=== PATIENT | male | born 1975 | race Caucasian/White ===

== ENCOUNTER 2016-12-18 16:39 | Inpatient (IN) | payer OTHER ==
[~2016-12-18] VITALS: Ht 185.4 cm; Wt 79.5 kg
[~2016-12-18 16:39] MED LIST: ALPRAZOLAM1 MG PO; ATIVAN0.5 MG; BUSPAR; COMBIVENT RESPIM4 GM IH; DEPAKOTE500 MG PO; FOLIC ACID1 MG PO; LIBRIUM25 MG PO; LOTRIMIN AF24 GM TP; PROZAC40 MG PO; SILVADENE20 GM TP; SPECTRAVITE PO; THIAMINE HCL100 MG PO; ULTRAM50 MG PO; UNABLEOBTAIN; VENTOLIN HFA18 GM IH; VITAMIN B-1100 MG PO
[2016-12-18 18:21] LABS: EOSINOPHIL (%) 0.1 % (0-5); HEMATOCRIT 26.9 % (38.0-50.0); IMMATURE GRANULOCYTE (%) 1.7 % (0.0-0.7); IMMATURE GRANULOCYTE COUNT 0.3 K/uL; INSTRUMENT ABS NEUTROPHIL CT 14.3 K/uL; LYMPHOCYTE COUNT 1.3 K/uL (1.0-2.8); MCHC 37.5 G/DL (30.0-36.0); MCV 87.9 FL (86-99); MEAN PLAT.VOLUME 13.5 uM^3 (9.0-12.4); MONOCYTE (%) 9.1 % (3-12); MONOCYTE COUNT 1.6 K/uL (0-0.8); NEUTROPHIL (%) 81.4 % (45-76); NEUTROPHIL COUNT 14.3 K/uL (1.8-6.4); NRBC (%) 0.1 /100 WBC (0-0); PLATELET COUNT 141 K/uL (156-360); RBC DIS.WIDTH-CV 12.7 % (11.8-14.6); RBC DIS.WIDTH-SD 39.9 % (39-53); RED BLOOD COUNT 3.06 M/uL (4.00-5.50); WHITE BLOOD COUNT 17.6 K/uL (4.1-10.2)
[2016-12-18 18:33] LABS: CHLORIDE 86 mEq/L (99-109); SODIUM 121 mEq/L (136-147)
[2016-12-18 18:35] LABS: GLUCOSE 96 mg/dL (70-99)
[2016-12-18 18:37] LABS: ANION GAP 16 MEQ/L (2-14); TOTAL BILIRUBIN 1.9 mg/dL (0.0-1.0)
[2016-12-18 18:39] LABS: ALKALINE PHOSPHATASE 197 IU/L (3-129); GFR ESTIMATE (CALCULATED) 39 mL/min/; INTER. NORMALIZED RATIO 1.3; PROTHROMBIN TIME 13.3 (9.2-11.2); PTT 31.6 (25-32)
[2016-12-18 18:40] LABS: UREA NITROGEN (BUN) 39 mg/dL (9-23)
[2016-12-18 18:41] LABS: DIRECT BILIRUBIN 1.4 mg/dL (0.0-0.3)
[2016-12-18 18:44] LABS: POTASSIUM 2.2 mEq/L (3.7-5.4)
[2016-12-18 18:56] LABS: LIPASE > 4220 U/L (1.0-51.0)
[2016-12-18 19:36] LABS: LACTATE DEHYDROGENASE 143 IU/L (20-246)
[2016-12-18] MEDS ORDERED: NASA MIST SALIN75 ML BOTH NARES (21:43)
[2016-12-18] MEDS ORDERED: VIMPAT50 MG PO (21:43)
[2016-12-18] MEDS ORDERED: SODIUM CHLORIDE1 G1 PO (21:44)
[2016-12-18] MEDS ORDERED: FOLIC ACID1 MG PO (21:45)
[2016-12-18] MEDS ORDERED: OXAYDO5 MG PO (21:46)
[2016-12-18] MEDS ORDERED: OXYCODONE HCL5 MG PO (21:47)
[2016-12-18] MEDS ORDERED: CLONIDINE HCL0.1 MG PO (21:47)
[2016-12-18] MEDS ORDERED: IBUPROFEN800 MG PO (21:48)
[2016-12-18] MEDS ORDERED: ALPRAZOLAM1 MG PO (21:48)
[2016-12-18] MEDS ORDERED: KEPPRA1000 MG PO (21:49)
[2016-12-18] MEDS ORDERED: PRIMIDONE50 MG PO (21:50)
[2016-12-18] MEDS ORDERED: DEMECLOCYCLINE300 MG PO ×2 (21:51)
[2016-12-18] MEDS ORDERED: DIPHENHIST25 M2 PO (21:52)
[2016-12-18 22:39] VITALS: BP 130/83
[2016-12-18 22:45] VITALS: BP 130/83
[2016-12-18 23:00] VITALS: BP 127/78
[2016-12-18 23:30] VITALS: BP 0/0; BP 115/72
[2016-12-19] VITALS (15 sets, daily range): BP systolic 110–142; BP diastolic 63–80
[2016-12-19 00:21] LABS: METH RESISTANT S AUREUS PCR NEGATIVE (NEGATIVE)
[2016-12-19 00:36] LABS: HEMATOCRIT 21.7 % (38.0-50.0); MCH 33.2 PG (29.0-34.0); MCHC 37.8 G/DL (30.0-36.0); MCV 87.9 FL (86-99); NRBC (%) 0.1 /100 WBC (0-0); PLAT.SUFFICIENCY DECREASED; PLATELET COUNT 116 K/uL (156-360); RBC DIS.WIDTH-CV 12.6 % (11.8-14.6); RBC DIS.WIDTH-SD 39.5 % (39-53); RED BLOOD COUNT 2.47 M/uL (4.00-5.50); WHITE BLOOD COUNT 17.5 K/uL (4.1-10.2)
[2016-12-19 00:46] LABS: PROBE CHECK PASS; SPECIMEN PROCESSING CONTROL PASS
[2016-12-19 01:45] LABS: SODIUM 126 mEq/L (136-147)
[2016-12-19 01:46] LABS: MAGNESIUM 1.4 mg/dL (1.3-2.7)
[2016-12-19 01:47] LABS: GLUCOSE 79 mg/dL (70-99)
[2016-12-19 01:49] LABS: ANION GAP 12 MEQ/L (2-14); TOTAL BILIRUBIN 1.6 mg/dL (0.0-1.0)
[2016-12-19 01:51] LABS: ALKALINE PHOSPHATASE 156 IU/L (3-129); GFR ESTIMATE (CALCULATED) 51 mL/min/
[2016-12-19 01:52] LABS: UREA NITROGEN (BUN) 35 mg/dL (9-23)
[2016-12-19 02:00] LABS: CHLORIDE 95 mEq/L (99-109); POTASSIUM 2.2 mEq/L (3.7-5.4)
[2016-12-19 02:14] LABS: ADD MIUA? YES; BILIRUBIN NEGATIVE; BLOOD SMALL; COLOR YELLOW ((YELLOW)); GLUCOSE (STRIP) NEGATIVE; KETONES NEGATIVE; LEUKOCYTES NEGATIVE; NITRITE NEGATIVE; PROTEIN (STRIP) NEGATIVE; SPECIFIC GRAVITY 1.006 (1.000-1.030); UROBILINOGEN 0.2 MG/DL (0.2-1.0)
[2016-12-19 02:20] LABS: BACTERIA NONE SEEN /HPF; EPITHELIAL CELLS NONE SEEN /HPF; MUCUS NONE SEEN /LPF; UCUL ADDED? NO; WHITE BLOOD CELLS 0-5 /HPF (0-5)
[2016-12-19 03:27] LABS: UR CREATININE CONCENTRATION 77.9 MG/DL
[2016-12-19 06:19] LABS: HEMATOCRIT 21.2 % (38.0-50.0); MCH 32.8 PG (29.0-34.0); MCHC 36.3 G/DL (30.0-36.0); MCV 90.2 FL (86-99); MEAN PLAT.VOLUME 13.4 uM^3 (9.0-12.4); PLATELET COUNT 106 K/uL (156-360); RBC DIS.WIDTH-CV 13.3 % (11.8-14.6); RBC DIS.WIDTH-SD 43.1 % (39-53); RED BLOOD COUNT 2.35 M/uL (4.00-5.50); WHITE BLOOD COUNT 15.9 K/uL (4.1-10.2)
[2016-12-19 07:05] LABS: ANION GAP 10 MEQ/L (2-14); CHLORIDE 95 MEQ/L (99-109); GFR ESTIMATE (CALCULATED) 51 mL/min/; GLUCOSE 72 mg/dL (70-99); LIPASE 3217 U/L (1.0-51.0); MAGNESIUM 2.4 mg/dl (1.3-2.7); SAMPLE HEMOLYSIS CHECK 0; SAMPLE ICTERIC CHECK 0; SAMPLE LIPEMIA CHECK 0; SODIUM 125 MEQ/L (136-147); TRIGLYCERIDES 107 MG/DL (Normal: <150); UREA NITROGEN (BUN) 33 mg/dL (9-23)
[2016-12-19 07:08] LABS: POTASSIUM 2.7 MEQ/L (3.7-5.4)
[2016-12-19 09:31] LABS: ANION GAP 11 MEQ/L (2-14); CHLORIDE 95 MEQ/L (99-109); GFR ESTIMATE (CALCULATED) 51 mL/min/; GLUCOSE 72 mg/dL (70-99); POTASSIUM 2.8 MEQ/L (3.7-5.4); SAMPLE HEMOLYSIS CHECK 0; SAMPLE ICTERIC CHECK 0; SAMPLE LIPEMIA CHECK 0; SODIUM 126 MEQ/L (136-147); UREA NITROGEN (BUN) 33 mg/dL (9-23)
[2016-12-19 10:57] LABS: HBSG INDEX 0.25; HPCA INDEX 0.09
[2016-12-19 10:58] LABS: ANTI-HEPATITIS A VIRUS (IGM) Nonreactive; HAV INDEX 0.14
[2016-12-19 10:59] LABS: ANTI-HEPATITIS B CORE (IGM) Nonreactive; HBC IgM INDEX 0.07
[2016-12-19 13:38] LABS: ANION GAP 13 MEQ/L (2-14); CHLORIDE 97 MEQ/L (99-109); GFR ESTIMATE (CALCULATED) 51 mL/min/; GLUCOSE 73 mg/dL (70-99); MAGNESIUM 2.1 mg/dl (1.3-2.7); POTASSIUM 2.7 MEQ/L (3.7-5.4); SAMPLE HEMOLYSIS CHECK 0; SAMPLE ICTERIC CHECK 0; SAMPLE LIPEMIA CHECK 0; SODIUM 127 MEQ/L (136-147); UREA NITROGEN (BUN) 32 mg/dL (9-23)
[2016-12-19 18:32] LABS: ANION GAP 11 MEQ/L (2-14); CHLORIDE 96 MEQ/L (99-109); GFR ESTIMATE (CALCULATED) 55 mL/min/; GLUCOSE 76 mg/dL (70-99); POTASSIUM 2.6 MEQ/L (3.7-5.4); SAMPLE HEMOLYSIS CHECK 0; SAMPLE ICTERIC CHECK 0; SAMPLE LIPEMIA CHECK 0; SODIUM 126 MEQ/L (136-147); UREA NITROGEN (BUN) 31 mg/dL (9-23)
[2016-12-20] VITALS (12 sets, daily range): BP systolic 107–143; BP diastolic 67–92
[2016-12-20 00:49] LABS: CHLORIDE 100 mEq/L (99-109); SODIUM 126 mEq/L (136-147)
[2016-12-20 00:50] LABS: MAGNESIUM 1.7 mg/dL (1.3-2.7); POTASSIUM 3.2 mEq/L (3.7-5.4)
[2016-12-20 00:51] LABS: GLUCOSE 71 mg/dL (70-99)
[2016-12-20 00:52] LABS: ANION GAP 9 MEQ/L (2-14)
[2016-12-20 00:54] LABS: GFR ESTIMATE (CALCULATED) > 59 mL/min/
[2016-12-20 00:55] LABS: UREA NITROGEN (BUN) 30 mg/dL (9-23)
[2016-12-20 06:08] LABS: HEMATOCRIT 22.3 % (38.0-50.0); MCH 33.2 PG (29.0-34.0); MCHC 36.3 G/DL (30.0-36.0); MCV 91.4 FL (86-99); MEAN PLAT.VOLUME 13.5 uM^3 (9.0-12.4); PLATELET COUNT 118 K/uL (156-360); RBC DIS.WIDTH-CV 13.8 % (11.8-14.6); RBC DIS.WIDTH-SD 45.7 % (39-53); RED BLOOD COUNT 2.44 M/uL (4.00-5.50); WHITE BLOOD COUNT 15.4 K/uL (4.1-10.2)
[2016-12-20 06:35] LABS: ALKALINE PHOSPHATASE 149 IU/L (3-129); ANION GAP 9 MEQ/L (2-14); CHLORIDE 100 MEQ/L (99-109); GFR ESTIMATE (CALCULATED) > 59 mL/min/; GLUCOSE 67 mg/dL (70-99); POTASSIUM 3.4 MEQ/L (3.7-5.4); SAMPLE HEMOLYSIS CHECK 0; SAMPLE ICTERIC CHECK 0; SAMPLE LIPEMIA CHECK 0; SODIUM 126 MEQ/L (136-147); TOTAL BILIRUBIN 1.5 MG/DL (0.0-1.0); UREA NITROGEN (BUN) 30 mg/dL (9-23)
[2016-12-20 06:59] LABS: ANION GAP 9 MEQ/L (2-14); CHLORIDE 100 MEQ/L (99-109); GFR ESTIMATE (CALCULATED) > 59 mL/min/; GLUCOSE 67 mg/dL (70-99); POTASSIUM 3.4 MEQ/L (3.7-5.4); SODIUM 126 MEQ/L (136-147); UREA NITROGEN (BUN) 30 mg/dL (9-23)
[2016-12-20 07:00] LABS: SAMPLE HEMOLYSIS CHECK 0; SAMPLE ICTERIC CHECK 0; SAMPLE LIPEMIA CHECK 0
[2016-12-20 13:27] LABS: ANION GAP 8 MEQ/L (2-14); CHLORIDE 99 MEQ/L (99-109); GFR ESTIMATE (CALCULATED) > 59 mL/min/; GLUCOSE 68 mg/dL (70-99); MAGNESIUM 1.8 mg/dl (1.3-2.7); POTASSIUM 3.3 MEQ/L (3.7-5.4); SAMPLE HEMOLYSIS CHECK 0; SAMPLE ICTERIC CHECK 0; SAMPLE LIPEMIA CHECK 0; SODIUM 125 MEQ/L (136-147); UREA NITROGEN (BUN) 30 mg/dL (9-23)
[2016-12-20 18:53] LABS: ANION GAP 8 MEQ/L (2-14); CHLORIDE 99 MEQ/L (99-109); GFR ESTIMATE (CALCULATED) > 59 mL/min/; GLUCOSE 66 mg/dL (70-99); MAGNESIUM 1.8 mg/dl (1.3-2.7); SAMPLE HEMOLYSIS CHECK 1; SAMPLE ICTERIC CHECK 0; SAMPLE LIPEMIA CHECK 0; SODIUM 123 MEQ/L (136-147); UREA NITROGEN (BUN) 29 mg/dL (9-23)
[2016-12-20 18:54] LABS: POTASSIUM 3.9 MEQ/L (3.7-5.4)
[2016-12-21] VITALS (18 sets, daily range): BP systolic 109–144; BP diastolic 54–89
[2016-12-21 01:32] LABS: CHLORIDE 104 mEq/L (99-109); POTASSIUM 3.4 mEq/L (3.7-5.4); SODIUM 128 mEq/L (136-147)
[2016-12-21 01:34] LABS: GLUCOSE 70 mg/dL (70-99)
[2016-12-21 01:35] LABS: ANION GAP 9 MEQ/L (2-14)
[2016-12-21 01:38] LABS: GFR ESTIMATE (CALCULATED) > 59 mL/min/; UREA NITROGEN (BUN) 27 mg/dL (9-23)
[2016-12-21 08:07] LABS: ALKALINE PHOSPHATASE 144 IU/L (3-129); ANION GAP 8 MEQ/L (2-14); CHLORIDE 105 MEQ/L (99-109); GFR ESTIMATE (CALCULATED) > 59 mL/min/; GLUCOSE 78 mg/dL (70-99); POTASSIUM 3.5 MEQ/L (3.7-5.4); SAMPLE HEMOLYSIS CHECK 0; SAMPLE ICTERIC CHECK 0; SAMPLE LIPEMIA CHECK 0; SODIUM 129 MEQ/L (136-147); TOTAL BILIRUBIN 1.5 MG/DL (0.0-1.0); UREA NITROGEN (BUN) 26 mg/dL (9-23)
[2016-12-21 08:22] LABS: HEMATOCRIT 19.2 % (38.0-50.0); MCH 32.7 PG (29.0-34.0); MCHC 35.4 G/DL (30.0-36.0); MCV 92.3 FL (86-99); RBC DIS.WIDTH-CV 14.2 % (11.8-14.6); RBC DIS.WIDTH-SD 46.5 % (39-53); RED BLOOD COUNT 2.08 M/uL (4.00-5.50)
[2016-12-21 08:23] LABS: WHITE BLOOD COUNT 20.1 K/uL (4.1-10.2)
[2016-12-21 08:36] LABS: MEAN PLAT.VOLUME 12.9 uM^3 (9.0-12.4); PLATELET COUNT 125 K/uL (156-360)
[2016-12-21 08:46] LABS: INTER. NORMALIZED RATIO > 20.0; PROTHROMBIN TIME > 185.0 (9.2-11.2)
[2016-12-21 08:50] LABS: MAGNESIUM 1.6 mg/dl (1.3-2.7)
[2016-12-21 08:58] LABS: PLAT.SUFFICIENCY DECREASED
[2016-12-21 12:26] LABS: HEMATOCRIT 18.9 % (38.0-50.0); MCH 33.5 PG (29.0-34.0); MCV 93.1 FL (86-99); MEAN PLAT.VOLUME 13.3 uM^3 (9.0-12.4); PLATELET COUNT 128 K/uL (156-360); RBC DIS.WIDTH-CV 14.2 % (11.8-14.6); RBC DIS.WIDTH-SD 46.7 % (39-53); RED BLOOD COUNT 2.03 M/uL (4.00-5.50); WHITE BLOOD COUNT 20.5 K/uL (4.1-10.2)
[2016-12-21 12:39] LABS: ANION GAP 9 MEQ/L (2-14); CHLORIDE 103 MEQ/L (99-109); MAGNESIUM 1.6 mg/dl (1.3-2.7); POTASSIUM 3.9 MEQ/L (3.7-5.4); SAMPLE HEMOLYSIS CHECK 0; SAMPLE ICTERIC CHECK 0; SAMPLE LIPEMIA CHECK 0; SODIUM 129 MEQ/L (136-147)
[2016-12-21 14:05] LABS: ALKALINE PHOSPHATASE 158 IU/L (3-129); DIRECT BILIRUBIN 0.9 mg/dL (0.0-0.3); GAMMA-GT 442 IU/L (4-73); GFR ESTIMATE (CALCULATED) > 59 mL/min/; GLUCOSE 74 mg/dL (70-99); LIPASE 2208 U/L (1.0-51.0); TOTAL BILIRUBIN 1.4 MG/DL (0.0-1.0); UREA NITROGEN (BUN) 24 mg/dL (9-23)
[2016-12-21 18:39] LABS: ANION GAP 9 MEQ/L (2-14); CHLORIDE 101 MEQ/L (99-109); GFR ESTIMATE (CALCULATED) > 59 mL/min/; GLUCOSE 86 mg/dL (70-99); MAGNESIUM 1.8 mg/dl (1.3-2.7); POTASSIUM 3.9 MEQ/L (3.7-5.4); SAMPLE HEMOLYSIS CHECK 0; SAMPLE ICTERIC CHECK 0; SAMPLE LIPEMIA CHECK 0; SODIUM 126 MEQ/L (136-147); UREA NITROGEN (BUN) 23 mg/dL (9-23)
[2016-12-21 21:16] LABS: MCV 91.5 FL (86-99)
[2016-12-22] VITALS (22 sets, daily range): BP systolic 100–137; BP diastolic 66–86
[2016-12-22 00:48] LABS: CHLORIDE 104 mEq/L (99-109); POTASSIUM 3.4 mEq/L (3.7-5.4); SODIUM 130 mEq/L (136-147)
[2016-12-22 00:50] LABS: GLUCOSE 88 mg/dL (70-99)
[2016-12-22 00:52] LABS: ANION GAP 9 MEQ/L (2-14)
[2016-12-22 00:54] LABS: GFR ESTIMATE (CALCULATED) > 59 mL/min/
[2016-12-22 00:55] LABS: UREA NITROGEN (BUN) 22 mg/dL (9-23)
[2016-12-22 05:53] LABS: BASOPHIL COUNT 0.1 K/uL (0-0.1); EOSINOPHIL (%) 1.4 % (0-5); EOSINOPHIL COUNT 0.3 K/uL (0-0.3); HEMATOCRIT 24.5 % (38.0-50.0); IMMATURE GRANULOCYTE (%) 2.2 % (0.0-0.7); IMMATURE GRANULOCYTE COUNT 0.4 K/uL; INSTRUMENT ABS NEUTROPHIL CT 13.5 K/uL; LYMPHOCYTE COUNT 2.4 K/uL (1.0-2.8); MCH 32.5 PG (29.0-34.0); MCHC 36.3 G/DL (30.0-36.0); MCV 89.4 FL (86-99); MEAN PLAT.VOLUME 13.1 uM^3 (9.0-12.4); MONOCYTE (%) 14.2 % (3-12); MONOCYTE COUNT 2.8 K/uL (0-0.8); NEUTROPHIL (%) 69.5 % (45-76); NEUTROPHIL COUNT 13.5 K/uL (1.8-6.4); PLATELET COUNT 112 K/uL (156-360); RBC DIS.WIDTH-CV 14.2 % (11.8-14.6); RBC DIS.WIDTH-SD 45.5 % (39-53); WHITE BLOOD COUNT 19.5 K/uL (4.1-10.2)
[2016-12-22 06:33] LABS: RED BLOOD COUNT 2.74 M/uL (4.00-5.50)
[2016-12-22 07:03] LABS: PTT 37.9 (25-32)
[2016-12-22 10:26] LABS: ALKALINE PHOSPHATASE 150 IU/L (3-129); ANION GAP 9 MEQ/L (2-14); CHLORIDE 101 MEQ/L (99-109); DIRECT BILIRUBIN 1.2 mg/dL (0.0-0.3); GFR ESTIMATE (CALCULATED) > 59 mL/min/; GLUCOSE 82 mg/dL (70-99); IRON 87 MCG/DL (35-150); LIPASE 1374 U/L (1.0-51.0); POTASSIUM 3.6 MEQ/L (3.7-5.4); SAMPLE HEMOLYSIS CHECK 0; SAMPLE ICTERIC CHECK 0; SAMPLE LIPEMIA CHECK 0; SODIUM 129 MEQ/L (136-147); UREA NITROGEN (BUN) 22 mg/dL (9-23)
[2016-12-22 10:27] LABS: MAGNESIUM 1.5 mg/dl (1.3-2.7)
[2016-12-22 10:28] LABS: TOTAL BILIRUBIN 2.1 MG/DL (0.0-1.0)
[2016-12-22 13:45] LABS: ANION GAP 9 MEQ/L (2-14); CHLORIDE 100 MEQ/L (99-109); GFR ESTIMATE (CALCULATED) > 59 mL/min/; GLUCOSE 76 mg/dL (70-99); POTASSIUM 3.5 MEQ/L (3.7-5.4); SAMPLE HEMOLYSIS CHECK 0; SAMPLE ICTERIC CHECK 0; SAMPLE LIPEMIA CHECK 0; SODIUM 129 MEQ/L (136-147); UREA NITROGEN (BUN) 20 mg/dL (9-23)
[2016-12-22 16:29] LABS: PTT 37.8 (25-32)
[2016-12-22 17:01] LABS: INTER. NORMALIZED RATIO > 20.0
[2016-12-22 17:02] LABS: PROTHROMBIN TIME > 185.0 (9.2-11.2)
[2016-12-22 18:38] LABS: FIBRINOGEN 148 MG/DL (160-450); PTT 36.6 (25-32)
[2016-12-22 18:43] LABS: ANION GAP 9 MEQ/L (2-14); CHLORIDE 100 MEQ/L (99-109); GFR ESTIMATE (CALCULATED) > 59 mL/min/; GLUCOSE 76 mg/dL (70-99); POTASSIUM 3.3 MEQ/L (3.7-5.4); SAMPLE HEMOLYSIS CHECK 0; SAMPLE ICTERIC CHECK 0; SAMPLE LIPEMIA CHECK 0; SODIUM 128 MEQ/L (136-147); UREA NITROGEN (BUN) 19 mg/dL (9-23)
[2016-12-22 22:08] LABS: PTT 33.4 (25-32)
[2016-12-22 22:10] LABS: INTER. NORMALIZED RATIO 1.3; PROTHROMBIN TIME 13.3 (9.2-11.2)
[2016-12-23] VITALS: BP 113/60
[2016-12-23 02:00] VITALS: BP 114/64
[2016-12-23 04:00] VITALS: BP 90/51
[2016-12-23 05:35] LABS: BASOPHIL COUNT 0.1 K/uL (0-0.1); EOSINOPHIL (%) 1.7 % (0-5); EOSINOPHIL COUNT 0.3 K/uL (0-0.3); HEMATOCRIT 22.4 % (38.0-50.0); IMMATURE GRANULOCYTE (%) 1.3 % (0.0-0.7); IMMATURE GRANULOCYTE COUNT 0.2 K/uL; INSTRUMENT ABS NEUTROPHIL CT 11.9 K/uL; LYMPHOCYTE COUNT 1.7 K/uL (1.0-2.8); MCH 32.5 PG (29.0-34.0); MCHC 36.2 G/DL (30.0-36.0); MEAN PLAT.VOLUME 12.6 uM^3 (9.0-12.4); MONOCYTE (%) 14.8 % (3-12); MONOCYTE COUNT 2.5 K/uL (0-0.8); NEUTROPHIL (%) 71.3 % (45-76); NEUTROPHIL COUNT 11.9 K/uL (1.8-6.4); PLATELET COUNT 96 K/uL (156-360); RBC DIS.WIDTH-CV 14.4 % (11.8-14.6); RBC DIS.WIDTH-SD 46.7 % (39-53); RED BLOOD COUNT 2.49 M/uL (4.00-5.50); WHITE BLOOD COUNT 16.6 K/uL (4.1-10.2)
[2016-12-23 05:44] LABS: INTER. NORMALIZED RATIO 1.3; PROTHROMBIN TIME 13.4 (9.2-11.2); PTT 34.2 (25-32)
[2016-12-23 06:16] LABS: ALKALINE PHOSPHATASE 131 IU/L (3-129); ANION GAP 7 MEQ/L (2-14); CHLORIDE 103 MEQ/L (99-109); GFR ESTIMATE (CALCULATED) > 59 mL/min/; GLUCOSE 88 mg/dL (70-99); POTASSIUM 3.8 MEQ/L (3.7-5.4); SAMPLE HEMOLYSIS CHECK 0; SAMPLE ICTERIC CHECK 0; SAMPLE LIPEMIA CHECK 0; SODIUM 132 MEQ/L (136-147); UREA NITROGEN (BUN) 17 mg/dL (9-23)
[2016-12-23 06:18] LABS: TOTAL BILIRUBIN 1.5 MG/DL (0.0-1.0)
[2016-12-23 07:00] VITALS: BP 112/69
[2016-12-23 08:00] VITALS: BP 121/65
[2016-12-23 12:00] VITALS: BP 121/65
[2016-12-23 18:29] LABS: ANION GAP 9 MEQ/L (2-14); CHLORIDE 103 MEQ/L (99-109); GFR ESTIMATE (CALCULATED) > 59 mL/min/; GLUCOSE 92 mg/dL (70-99); POTASSIUM 3.9 MEQ/L (3.7-5.4); SAMPLE HEMOLYSIS CHECK 0; SAMPLE ICTERIC CHECK 0; SAMPLE LIPEMIA CHECK 0; SODIUM 133 MEQ/L (136-147); UREA NITROGEN (BUN) 15 mg/dL (9-23)
[2016-12-23 18:32] LABS: ANION GAP 10 MEQ/L (2-14); CHLORIDE 100 MEQ/L (99-109); GFR ESTIMATE (CALCULATED) > 59 mL/min/; GLUCOSE 94 mg/dL (70-99); POTASSIUM 3.6 MEQ/L (3.7-5.4); SAMPLE HEMOLYSIS CHECK 0; SAMPLE ICTERIC CHECK 0; SAMPLE LIPEMIA CHECK 0; SODIUM 130 MEQ/L (136-147); UREA NITROGEN (BUN) 14 mg/dL (9-23)
[2016-12-24 00:04] VITALS: BP 117/69
[2016-12-24 00:42] LABS: CHLORIDE 103 mEq/L (99-109); POTASSIUM 3.6 mEq/L (3.7-5.4); SODIUM 130 mEq/L (136-147)
[2016-12-24 00:44] LABS: GLUCOSE 89 mg/dL (70-99)
[2016-12-24 00:45] LABS: ANION GAP 9 MEQ/L (2-14)
[2016-12-24 00:48] LABS: GFR ESTIMATE (CALCULATED) > 59 mL/min/
[2016-12-24 00:49] LABS: UREA NITROGEN (BUN) 13 mg/dL (9-23)
[2016-12-24 06:01] LABS: HEMATOCRIT 21.7 % (38.0-50.0); MCH 32.1 PG (29.0-34.0); MCV 91.6 FL (86-99); MEAN PLAT.VOLUME 13.1 uM^3 (9.0-12.4); PLATELET COUNT 98 K/uL (156-360); RBC DIS.WIDTH-CV 14.8 % (11.8-14.6); RBC DIS.WIDTH-SD 48.4 % (39-53); RED BLOOD COUNT 2.37 M/uL (4.00-5.50); WHITE BLOOD COUNT 15.4 K/uL (4.1-10.2)
[2016-12-24 07:58] VITALS: BP 129/75
[2016-12-24 08:24] LABS: ALKALINE PHOSPHATASE 129 IU/L (3-129); ANION GAP 9 MEQ/L (2-14); CHLORIDE 102 MEQ/L (99-109); GFR ESTIMATE (CALCULATED) > 59 mL/min/; GLUCOSE 81 mg/dL (70-99); POTASSIUM 3.5 MEQ/L (3.7-5.4); SAMPLE HEMOLYSIS CHECK 0; SAMPLE ICTERIC CHECK 0; SAMPLE LIPEMIA CHECK 0; SODIUM 132 MEQ/L (136-147); TOTAL BILIRUBIN 1.4 MG/DL (0.0-1.0); UREA NITROGEN (BUN) 12 mg/dL (9-23)
[2016-12-24 16:24] LABS: ANION GAP 8 MEQ/L (2-14); CHLORIDE 99 MEQ/L (99-109); GFR ESTIMATE (CALCULATED) > 59 mL/min/; GLUCOSE 80 mg/dL (70-99); POTASSIUM 4.2 MEQ/L (3.7-5.4); SAMPLE HEMOLYSIS CHECK 0; SAMPLE ICTERIC CHECK 0; SAMPLE LIPEMIA CHECK 0; SODIUM 131 MEQ/L (136-147); UREA NITROGEN (BUN) 10 mg/dL (9-23)
[2016-12-24 16:42] VITALS: BP 126/70
[2016-12-24 19:14] LABS: ANION GAP 8 MEQ/L (2-14); CHLORIDE 99 MEQ/L (99-109); GFR ESTIMATE (CALCULATED) > 59 mL/min/; GLUCOSE 97 mg/dL (70-99); POTASSIUM 4.2 MEQ/L (3.7-5.4); SAMPLE HEMOLYSIS CHECK 0; SAMPLE ICTERIC CHECK 0; SAMPLE LIPEMIA CHECK 0; SODIUM 131 MEQ/L (136-147); UREA NITROGEN (BUN) 9 mg/dL (9-23)
[2016-12-24 20:44] VITALS: BP 116/61
[2016-12-24 23:16] LABS: HEMATOCRIT 23.6 % (38.0-50.0); MCH 32.4 PG (29.0-34.0); MCHC 35.2 G/DL (30.0-36.0); MCV 92.2 FL (86-99); MEAN PLAT.VOLUME 13.1 uM^3 (9.0-12.4); RBC DIS.WIDTH-CV 14.6 % (11.8-14.6); RBC DIS.WIDTH-SD 49.1 % (39-53); RED BLOOD COUNT 2.56 M/uL (4.00-5.50)
[2016-12-24 23:17] LABS: PLATELET COUNT 128 K/uL (156-360)
[2016-12-24 23:24] LABS: CHLORIDE 99 mEq/L (99-109); POTASSIUM 4.2 mEq/L (3.7-5.4); SODIUM 131 mEq/L (136-147)
[2016-12-24 23:26] LABS: GLUCOSE 87 mg/dL (70-99)
[2016-12-24 23:28] LABS: ANION GAP 11 MEQ/L (2-14); TOTAL BILIRUBIN 1.4 mg/dL (0.0-1.0)
[2016-12-24 23:30] LABS: ALKALINE PHOSPHATASE 135 IU/L (3-129); GFR ESTIMATE (CALCULATED) > 59 mL/min/
[2016-12-24 23:31] LABS: UREA NITROGEN (BUN) 9 mg/dL (9-23)
[2016-12-24 23:33] LABS: LIPASE 997 U/L (1.0-51.0)
[2016-12-25] VITALS: BP 123/65
[2016-12-25 01:05] LABS: ADD MIUA? YES; BILIRUBIN NEGATIVE; BLOOD SMALL; COLOR YELLOW ((YELLOW)); GLUCOSE (STRIP) NEGATIVE; KETONES NEGATIVE; LEUKOCYTES NEGATIVE; NITRITE NEGATIVE; PROTEIN (STRIP) NEGATIVE; SPECIFIC GRAVITY 1.004 (1.000-1.030); UROBILINOGEN 0.2 MG/DL (0.2-1.0)
[2016-12-25 01:08] LABS: BACTERIA NONE SEEN /HPF; EPITHELIAL CELLS NONE SEEN /HPF; MUCUS TRACE /LPF; RED BLOOD CELLS 0-5 /HPF (0-5); UCUL ADDED? NO; WHITE BLOOD CELLS 0-5 /HPF (0-5)
[2016-12-25 01:39] LABS: C DIFF TOXIN NEGATIVE (NEGATIVE); PROBE CHECK PASS; SPECIMEN PROCESSING CONTROL PASS
[2016-12-25 04:05] LABS: HEMATOCRIT 20.8 % (38.0-50.0); MCH 32.8 PG (29.0-34.0); MCHC 36.1 G/DL (30.0-36.0); MCV 90.8 FL (86-99); RBC DIS.WIDTH-CV 14.6 % (11.8-14.6); RBC DIS.WIDTH-SD 47.8 % (39-53); RED BLOOD COUNT 2.29 M/uL (4.00-5.50)
[2016-12-25 04:16] LABS: CHLORIDE 101 mEq/L (99-109); SODIUM 130 mEq/L (136-147)
[2016-12-25 04:18] LABS: CHLORIDE 100 mEq/L (99-109); GLUCOSE 79 mg/dL (70-99); POTASSIUM 3.9 mEq/L (3.7-5.4); SODIUM 130 mEq/L (136-147)
[2016-12-25 04:20] LABS: ANION GAP 9 MEQ/L (2-14)
[2016-12-25 04:21] LABS: GLUCOSE 79 mg/dL (70-99)
[2016-12-25 04:22] LABS: ANION GAP 9 MEQ/L (2-14); GFR ESTIMATE (CALCULATED) > 59 mL/min/
[2016-12-25 04:23] LABS: TOTAL BILIRUBIN 1.4 mg/dL (0.0-1.0); UREA NITROGEN (BUN) 8 mg/dL (9-23)
[2016-12-25 04:24] LABS: ALKALINE PHOSPHATASE 118 IU/L (3-129)
[2016-12-25 04:25] LABS: GFR ESTIMATE (CALCULATED) > 59 mL/min/
[2016-12-25 04:26] LABS: UREA NITROGEN (BUN) 9 mg/dL (9-23)
[2016-12-25 04:38] LABS: MAGNESIUM 0.6 mg/dL (1.3-2.7)
[2016-12-25 05:06] LABS: MEAN PLAT.VOLUME 12.2 uM^3 (9.0-12.4); PLAT.SUFFICIENCY ADEQUATE; PLATELET COUNT 123 K/uL (156-360)
[2016-12-25 08:30] VITALS: BP 106/61
[2016-12-25 13:13] LABS: ANION GAP 8 MEQ/L (2-14); CHLORIDE 98 MEQ/L (99-109); GFR ESTIMATE (CALCULATED) > 59 mL/min/; GLUCOSE 85 mg/dL (70-99); POTASSIUM 4.3 MEQ/L (3.7-5.4); SAMPLE HEMOLYSIS CHECK 0; SAMPLE ICTERIC CHECK 0; SAMPLE LIPEMIA CHECK 0; SODIUM 130 MEQ/L (136-147); UREA NITROGEN (BUN) 8 mg/dL (9-23)
[2016-12-25 14:02] LABS: FERRITIN 973 NG/ML (22-322); LIPASE 592 U/L (1.0-51.0)
[2016-12-25 16:57] VITALS: BP 118/61
[2016-12-25 19:42] LABS: ANION GAP 10 MEQ/L (2-14); CHLORIDE 97 MEQ/L (99-109); GFR ESTIMATE (CALCULATED) > 59 mL/min/; GLUCOSE 121 mg/dL (70-99); POTASSIUM 3.3 MEQ/L (3.7-5.4); SAMPLE HEMOLYSIS CHECK 0; SAMPLE ICTERIC CHECK 0; SAMPLE LIPEMIA CHECK 0; SODIUM 129 MEQ/L (136-147); UREA NITROGEN (BUN) 7 mg/dL (9-23)
[2016-12-26 00:09] VITALS: BP 115/58
[2016-12-26 00:16] LABS: INTERNAL CONTROL VALID? YES
[2016-12-26 00:45] LABS: CHLORIDE 100 mEq/L (99-109); POTASSIUM 3.7 mEq/L (3.7-5.4); SODIUM 129 mEq/L (136-147)
[2016-12-26 00:47] LABS: GLUCOSE 127 mg/dL (70-99)
[2016-12-26 00:48] LABS: ANION GAP 8 MEQ/L (2-14)
[2016-12-26 00:51] LABS: GFR ESTIMATE (CALCULATED) > 59 mL/min/
[2016-12-26 00:52] LABS: UREA NITROGEN (BUN) 7 mg/dL (9-23)
[2016-12-26 05:48] LABS: HEMATOCRIT 21.1 % (38.0-50.0); MCH 32.4 PG (29.0-34.0); MCHC 34.6 G/DL (30.0-36.0); MCV 93.8 FL (86-99); MEAN PLAT.VOLUME 12.7 uM^3 (9.0-12.4); PLATELET COUNT 125 K/uL (156-360); RBC DIS.WIDTH-CV 14.6 % (11.8-14.6); RBC DIS.WIDTH-SD 49.6 % (39-53); RED BLOOD COUNT 2.25 M/uL (4.00-5.50)
[2016-12-26 06:41] LABS: ALKALINE PHOSPHATASE 117 IU/L (3-129); ANION GAP 11 MEQ/L (2-14); CHLORIDE 99 MEQ/L (99-109); GFR ESTIMATE (CALCULATED) > 59 mL/min/; GLUCOSE 110 mg/dL (70-99); LIPASE 449 U/L (1.0-51.0); POTASSIUM 3.8 MEQ/L (3.7-5.4); SAMPLE HEMOLYSIS CHECK 0; SAMPLE ICTERIC CHECK 0; SAMPLE LIPEMIA CHECK 0; SODIUM 131 MEQ/L (136-147); UREA NITROGEN (BUN) 6 mg/dL (9-23)
[2016-12-26 06:51] LABS: DIRECT BILIRUBIN 0.7 mg/dL (0.0-0.3); TOTAL BILIRUBIN 1.1 MG/DL (0.0-1.0)
[2016-12-26 08:20] VITALS: BP 131/57
[2016-12-26 11:03] LABS: MAGNESIUM 0.9 mg/dl (1.3-2.7)
[2016-12-26 12:20] LABS: ANION GAP 9 MEQ/L (2-14); CHLORIDE 97 MEQ/L (99-109); GFR ESTIMATE (CALCULATED) > 59 mL/min/; SAMPLE HEMOLYSIS CHECK 0; SAMPLE ICTERIC CHECK 0; SAMPLE LIPEMIA CHECK 0; SODIUM 129 MEQ/L (136-147); UREA NITROGEN (BUN) 5 mg/dL (9-23)
[2016-12-26 12:21] LABS: GLUCOSE 81 mg/dL (70-99)
[2016-12-26 14:01] LABS: PROTHROMBIN TIME ND (9.2-11.2)
[2016-12-26 14:06] LABS: BASELINE PT ND SEC (9.9-11.1)
[2016-12-26 16:30] VITALS: BP 110/59
[2016-12-26 18:46] LABS: ANION GAP 13 MEQ/L (2-14); CHLORIDE 97 MEQ/L (99-109); GFR ESTIMATE (CALCULATED) > 59 mL/min/; GLUCOSE 73 mg/dL (70-99); POTASSIUM 4.2 MEQ/L (3.7-5.4); SAMPLE HEMOLYSIS CHECK 0; SAMPLE ICTERIC CHECK 0; SAMPLE LIPEMIA CHECK 0; SODIUM 130 MEQ/L (136-147); UREA NITROGEN (BUN) 5 mg/dL (9-23)
[2016-12-26 20:15] VITALS: BP 111/56
[2016-12-27] VITALS: BP 98/55
[2016-12-27 00:37] LABS: CHLORIDE 101 mEq/L (99-109); POTASSIUM 3.7 mEq/L (3.7-5.4); SODIUM 130 mEq/L (136-147)
[2016-12-27 00:40] LABS: ANION GAP 10 MEQ/L (2-14)
[2016-12-27 00:42] LABS: GFR ESTIMATE (CALCULATED) > 59 mL/min/
[2016-12-27 00:43] LABS: GLUCOSE 110 mg/dL (70-99); UREA NITROGEN (BUN) 5 mg/dL (9-23)
[2016-12-27 05:40] LABS: ANION GAP 11 MEQ/L (2-14); CHLORIDE 98 MEQ/L (99-109); GFR ESTIMATE (CALCULATED) > 59 mL/min/; LIPASE 195 U/L (1.0-51.0); POTASSIUM 3.9 MEQ/L (3.7-5.4); SAMPLE HEMOLYSIS CHECK 0; SAMPLE ICTERIC CHECK 0; SAMPLE LIPEMIA CHECK 0; SODIUM 129 MEQ/L (136-147); UREA NITROGEN (BUN) 5 mg/dL (9-23)
[2016-12-27 05:41] LABS: GLUCOSE 75 mg/dL (70-99)
[2016-12-27 06:42] LABS: BASOPHIL COUNT 0.1 K/uL (0-0.1); EOSINOPHIL (%) 0.4 % (0-5); EOSINOPHIL COUNT 0.1 K/uL (0-0.3); HEMATOCRIT 21.4 % (38.0-50.0); IMMATURE GRANULOCYTE (%) 1.1 % (0.0-0.7); IMMATURE GRANULOCYTE COUNT 0.3 K/uL; INSTRUMENT ABS NEUTROPHIL CT 16.6 K/uL; LYMPHOCYTE COUNT 2.2 K/uL (1.0-2.8); MCH 32.9 PG (29.0-34.0); MCHC 34.6 G/DL (30.0-36.0); MCV 95.1 FL (86-99); MEAN PLAT.VOLUME 12.6 uM^3 (9.0-12.4); MONOCYTE (%) 13.5 % (3-12); NEUTROPHIL COUNT 16.6 K/uL (1.8-6.4); PLATELET COUNT 123 K/uL (156-360); RBC DIS.WIDTH-CV 14.8 % (11.8-14.6); RBC DIS.WIDTH-SD 50.9 % (39-53); RED BLOOD COUNT 2.25 M/uL (4.00-5.50); WHITE BLOOD COUNT 22.1 K/uL (4.1-10.2)
[2016-12-27 08:22] VITALS: BP 111/60
[2016-12-27 08:31] LABS: MAGNESIUM 0.8 mg/dl (1.3-2.7)
[2016-12-27 13:42] LABS: ANION GAP 12 MEQ/L (2-14); CHLORIDE 97 MEQ/L (99-109); GFR ESTIMATE (CALCULATED) > 59 mL/min/; GLUCOSE 82 mg/dL (70-99); POTASSIUM 3.7 MEQ/L (3.7-5.4); SAMPLE HEMOLYSIS CHECK 0; SAMPLE ICTERIC CHECK 0; SAMPLE LIPEMIA CHECK 0; SODIUM 129 MEQ/L (136-147); UREA NITROGEN (BUN) 6 mg/dL (9-23)
[2016-12-27 14:18] LABS: ADD MIUA? YES; BILIRUBIN NEGATIVE; BLOOD SMALL; COLOR YELLOW ((YELLOW)); GLUCOSE (STRIP) NEGATIVE; KETONES NEGATIVE; LEUKOCYTES NEGATIVE; NITRITE NEGATIVE; PROTEIN (STRIP) NEGATIVE; SPECIFIC GRAVITY 1.011 (1.000-1.030); UROBILINOGEN 0.2 MG/DL (0.2-1.0)
[2016-12-27 14:32] LABS: BACTERIA NONE SEEN /HPF; EPITHELIAL CELLS NONE SEEN /HPF; MUCUS NONE SEEN /LPF; RED BLOOD CELLS 0-5 /HPF (0-5); UCUL ADDED? NO; WHITE BLOOD CELLS 0-5 /HPF (0-5)
[2016-12-27 16:40] VITALS: BP 103/55
[2016-12-27 18:29] LABS: ANION GAP 11 MEQ/L (2-14); CHLORIDE 98 MEQ/L (99-109); GFR ESTIMATE (CALCULATED) > 59 mL/min/; GLUCOSE 92 mg/dL (70-99); POTASSIUM 4.2 MEQ/L (3.7-5.4); SAMPLE HEMOLYSIS CHECK 1; SAMPLE ICTERIC CHECK 0; SAMPLE LIPEMIA CHECK 0; SODIUM 128 MEQ/L (136-147); UREA NITROGEN (BUN) 7 mg/dL (9-23)
[2016-12-27 23:23] VITALS: BP 107/62
[2016-12-28 00:49] LABS: CHLORIDE 98 mEq/L (99-109); POTASSIUM 3.9 mEq/L (3.7-5.4); SODIUM 129 mEq/L (136-147)
[2016-12-28 00:51] LABS: GLUCOSE 87 mg/dL (70-99)
[2016-12-28 00:52] LABS: ANION GAP 9 MEQ/L (2-14)
[2016-12-28 00:55] LABS: GFR ESTIMATE (CALCULATED) > 59 mL/min/; UREA NITROGEN (BUN) 7 mg/dL (9-23)
[2016-12-28 05:18] LABS: ABSOLUTE RETICULOCYTE CT. 0.1 M/uL (0.02-0.08); IMM.RETIC FRACTION 9.6 % (3-19); RETIC HGB EQUIVALENT 34.4 (28-36); RETICULOCYTE COUNT 2.6 % (0.5-1.8)
[2016-12-28 05:51] LABS: ANION GAP 10 MEQ/L (2-14); CHLORIDE 94 MEQ/L (99-109); CHLORIDE 95 MEQ/L (99-109); GFR ESTIMATE (CALCULATED) > 59 mL/min/; GLUCOSE 94 mg/dL (70-99); GLUCOSE 96 mg/dL (70-99); POTASSIUM 3.7 MEQ/L (3.7-5.4); SAMPLE HEMOLYSIS CHECK 0; SAMPLE ICTERIC CHECK 0; SAMPLE LIPEMIA CHECK 0; SODIUM 127 MEQ/L (136-147); UREA NITROGEN (BUN) 7 mg/dL (9-23)
[2016-12-28 05:54] LABS: ANION GAP 9 MEQ/L (2-14); SAMPLE HEMOLYSIS CHECK 0; SAMPLE ICTERIC CHECK 0; SAMPLE LIPEMIA CHECK 0
[2016-12-28 08:03] VITALS: BP 109/58
[2016-12-28 09:12] LABS: INTACT PARATHYROID HORMONE 48 pg/mL (10-69)
[2016-12-28 09:18] LABS: MAGNESIUM 0.9 mg/dl (1.3-2.7)
[2016-12-28 11:56] LABS: HEMATOCRIT 19.9 % (38.0-50.0); MCH 32.7 PG (29.0-34.0); MCHC 35.2 G/DL (30.0-36.0); MEAN PLAT.VOLUME 12.6 uM^3 (9.0-12.4); PLATELET COUNT 103 K/uL (156-360); RBC DIS.WIDTH-CV 14.6 % (11.8-14.6); RBC DIS.WIDTH-SD 49.2 % (39-53); RED BLOOD COUNT 2.14 M/uL (4.00-5.50); WHITE BLOOD COUNT 17.5 K/uL (4.1-10.2)
[2016-12-28 12:25] LABS: ALKALINE PHOSPHATASE 106 IU/L (3-129); DIRECT BILIRUBIN 0.3 mg/dL (0.0-0.3); LIPASE 158 U/L (1.0-51.0); TOTAL BILIRUBIN 0.9 MG/DL (0.0-1.0)
[2016-12-28 12:30] LABS: ANION GAP 9 MEQ/L (2-14); CHLORIDE 97 MEQ/L (99-109); GFR ESTIMATE (CALCULATED) > 59 mL/min/; GLUCOSE 128 mg/dL (70-99); POTASSIUM 3.7 MEQ/L (3.7-5.4); SAMPLE HEMOLYSIS CHECK 0; SAMPLE ICTERIC CHECK 0; SAMPLE LIPEMIA CHECK 0; SODIUM 130 MEQ/L (136-147); UREA NITROGEN (BUN) 7 mg/dL (9-23)
[2016-12-28 13:36] LABS: CREATINE KINASE 15 IU/L (1-294)
[2016-12-28 15:15] VITALS: BP 110/56
[2016-12-28 17:06] LABS: AMPHETAMINES QUANT VALUE 0 NG/ML; BENZODIAZEPINES, URINE SCREEN POSITIVE (200 ng/mL); OPIATES QUANTITATIVE VALUE 0 NG/ML; PHENCYCLIDINE QUANT VALUE 0 NG/ML
[2016-12-28 18:50] LABS: ANION GAP 9 MEQ/L (2-14); CHLORIDE 96 MEQ/L (99-109); GFR ESTIMATE (CALCULATED) > 59 mL/min/; GLUCOSE 116 mg/dL (70-99); POTASSIUM 3.6 MEQ/L (3.7-5.4); SAMPLE HEMOLYSIS CHECK 0; SAMPLE ICTERIC CHECK 0; SAMPLE LIPEMIA CHECK 0; SODIUM 128 MEQ/L (136-147); UREA NITROGEN (BUN) 17 mg/dL (9-23)
[2016-12-28 23:42] VITALS: BP 107/56
[2016-12-29] VITALS (11 sets, daily range): BP systolic 108–135; BP diastolic 53–73
[2016-12-29 00:53] LABS: CHLORIDE 94 mEq/L (99-109); POTASSIUM 3.7 mEq/L (3.7-5.4); SODIUM 127 mEq/L (136-147)
[2016-12-29 00:54] LABS: GLUCOSE 88 mg/dL (70-99)
[2016-12-29 00:56] LABS: ANION GAP 11 MEQ/L (2-14)
[2016-12-29 00:58] LABS: GFR ESTIMATE (CALCULATED) > 59 mL/min/
[2016-12-29 00:59] LABS: UREA NITROGEN (BUN) 15 mg/dL (9-23)
[2016-12-29 06:13] LABS: ANION GAP 8 MEQ/L (2-14); CHLORIDE 94 MEQ/L (99-109); GFR ESTIMATE (CALCULATED) > 59 mL/min/; GLUCOSE 77 mg/dL (70-99); POTASSIUM 3.8 MEQ/L (3.7-5.4); SAMPLE HEMOLYSIS CHECK 0; SAMPLE ICTERIC CHECK 0; SAMPLE LIPEMIA CHECK 0; SODIUM 127 MEQ/L (136-147); UREA NITROGEN (BUN) 15 mg/dL (9-23)
[2016-12-29 09:51] LABS: HEMATOCRIT 18.8 % (38.0-50.0); MCH 32.2 PG (29.0-34.0); MCHC 34.6 G/DL (30.0-36.0); MCV 93.1 FL (86-99); RBC DIS.WIDTH-CV 14.5 % (11.8-14.6); RBC DIS.WIDTH-SD 49.2 % (39-53); RED BLOOD COUNT 2.02 M/uL (4.00-5.50)
[2016-12-29 09:58] LABS: MEAN PLAT.VOLUME 13.8 uM^3 (9.0-12.4); PLAT.SUFFICIENCY DECREASED
[2016-12-29 10:02] LABS: PLATELET COUNT 66 K/uL (156-360)
[2016-12-29 12:34] LABS: ANION GAP 9 MEQ/L (2-14); CHLORIDE 94 MEQ/L (99-109); GFR ESTIMATE (CALCULATED) > 59 mL/min/; POTASSIUM 3.6 MEQ/L (3.7-5.4); SAMPLE HEMOLYSIS CHECK 0; SAMPLE ICTERIC CHECK 0; SAMPLE LIPEMIA CHECK 0; SODIUM 128 MEQ/L (136-147); UREA NITROGEN (BUN) 15 mg/dL (9-23)
[2016-12-29 12:41] LABS: GLUCOSE 102 mg/dL (70-99)
[2016-12-29 14:50] LABS: INTERNAL CONTROL VALID? YES
[2016-12-29 21:53] LABS: HEMATOCRIT 24.8 % (38.0-50.0); MCV 88.6 FL (86-99)
[2016-12-29 23:42] LABS: ANION GAP 9 MEQ/L (2-14); CHLORIDE 94 MEQ/L (99-109); GFR ESTIMATE (CALCULATED) > 59 mL/min/; GLUCOSE 86 mg/dL (70-99); POTASSIUM 3.7 MEQ/L (3.7-5.4); SAMPLE HEMOLYSIS CHECK 0; SAMPLE ICTERIC CHECK 0; SAMPLE LIPEMIA CHECK 0; SODIUM 127 MEQ/L (136-147); UREA NITROGEN (BUN) 19 mg/dL (9-23)
[2016-12-29 23:54] LABS: MAGNESIUM 1.1 mg/dl (1.3-2.7)
[2016-12-30 00:07] VITALS: BP 124/62
[2016-12-30 00:49] LABS: CHLORIDE 94 mEq/L (99-109); POTASSIUM 3.7 mEq/L (3.7-5.4); SODIUM 129 mEq/L (136-147)
[2016-12-30 00:50] LABS: GLUCOSE 96 mg/dL (70-99)
[2016-12-30 00:52] LABS: ANION GAP 10 MEQ/L (2-14)
[2016-12-30 00:54] LABS: GFR ESTIMATE (CALCULATED) > 59 mL/min/
[2016-12-30 00:55] LABS: UREA NITROGEN (BUN) 19 mg/dL (9-23)
[2016-12-30 04:56] LABS: HEMATOCRIT 22.3 % (38.0-50.0); MCV 87.5 FL (86-99)
[2016-12-30 05:28] LABS: CHLORIDE 94 mEq/L (99-109); POTASSIUM 3.5 mEq/L (3.7-5.4); SODIUM 129 mEq/L (136-147)
[2016-12-30 05:30] LABS: GLUCOSE 94 mg/dL (70-99)
[2016-12-30 05:32] LABS: ANION GAP 10 MEQ/L (2-14)
[2016-12-30 05:34] LABS: GFR ESTIMATE (CALCULATED) > 59 mL/min/
[2016-12-30 05:35] LABS: UREA NITROGEN (BUN) 18 mg/dL (9-23)
[2016-12-30 07:49] VITALS: BP 115/58
[2016-12-30 09:40] LABS: INTER. NORMALIZED RATIO 1.2; PTT 36.7 (25-32)
[2016-12-30 11:57] LABS: HEMATOCRIT 24.4 % (38.0-50.0); MCV 88.7 FL (86-99)
[2016-12-30 12:07] LABS: ANION GAP 8 MEQ/L (2-14); CHLORIDE 90 MEQ/L (99-109); GFR ESTIMATE (CALCULATED) > 59 mL/min/; GLUCOSE 85 mg/dL (70-99); POTASSIUM 3.9 MEQ/L (3.7-5.4); SAMPLE HEMOLYSIS CHECK 0; SAMPLE ICTERIC CHECK 0; SAMPLE LIPEMIA CHECK 0; SODIUM 125 MEQ/L (136-147); UREA NITROGEN (BUN) 16 mg/dL (9-23)
[2016-12-30 15:23] VITALS: BP 119/66
[2016-12-30 20:17] LABS: HEMATOCRIT 24.2 % (38.0-50.0); MCV 89.3 FL (86-99)
[2016-12-30 20:44] LABS: ANION GAP 8 MEQ/L (2-14); CHLORIDE 92 MEQ/L (99-109); POTASSIUM 3.3 MEQ/L (3.7-5.4); SAMPLE HEMOLYSIS CHECK 0; SAMPLE ICTERIC CHECK 0; SAMPLE LIPEMIA CHECK 0; SODIUM 130 MEQ/L (136-147)
[2016-12-30 20:49] LABS: GFR ESTIMATE (CALCULATED) > 59 mL/min/; GLUCOSE 93 mg/dL (70-99); UREA NITROGEN (BUN) 13 mg/dL (9-23)
[2016-12-31 00:42] LABS: CHLORIDE 95 mEq/L (99-109); POTASSIUM 3.7 mEq/L (3.7-5.4); SODIUM 130 mEq/L (136-147)
[2016-12-31 00:44] LABS: GLUCOSE 96 mg/dL (70-99)
[2016-12-31 00:45] LABS: ANION GAP 8 MEQ/L (2-14)
[2016-12-31 00:48] LABS: GFR ESTIMATE (CALCULATED) > 59 mL/min/
[2016-12-31 00:49] LABS: UREA NITROGEN (BUN) 13 mg/dL (9-23)
[2016-12-31 01:04] VITALS: BP 113/51
[2016-12-31 06:53] LABS: ANION GAP 8 MEQ/L (2-14); CHLORIDE 93 MEQ/L (99-109); GFR ESTIMATE (CALCULATED) > 59 mL/min/; GLUCOSE 108 mg/dL (70-99); POTASSIUM 3.5 MEQ/L (3.7-5.4); SAMPLE HEMOLYSIS CHECK 0; SAMPLE ICTERIC CHECK 0; SAMPLE LIPEMIA CHECK 0; SODIUM 130 MEQ/L (136-147); UREA NITROGEN (BUN) 13 mg/dL (9-23)
[2016-12-31 07:58] VITALS: BP 109/56
[2016-12-31 13:33] LABS: HEMATOCRIT 26.7 % (38.0-50.0); MCH 31.9 PG (29.0-34.0); MCHC 35.2 G/DL (30.0-36.0); MCV 90.5 FL (86-99); MEAN PLAT.VOLUME 12.1 uM^3 (9.0-12.4); PLATELET COUNT 70 K/uL (156-360); RBC DIS.WIDTH-CV 14.7 % (11.8-14.6); RBC DIS.WIDTH-SD 49.2 % (39-53); RED BLOOD COUNT 2.95 M/uL (4.00-5.50); WHITE BLOOD COUNT 10.6 K/uL (4.1-10.2)
[2016-12-31 13:56] LABS: ANION GAP 6 MEQ/L (2-14); CHLORIDE 92 MEQ/L (99-109); GFR ESTIMATE (CALCULATED) > 59 mL/min/; GLUCOSE 95 mg/dL (70-99); POTASSIUM 3.7 MEQ/L (3.7-5.4); SAMPLE HEMOLYSIS CHECK 0; SAMPLE ICTERIC CHECK 0; SAMPLE LIPEMIA CHECK 0; SODIUM 130 MEQ/L (136-147); UREA NITROGEN (BUN) 11 mg/dL (9-23)
[2016-12-31 13:57] LABS: MAGNESIUM 1.8 mg/dl (1.3-2.7)
[2016-12-31 16:28] VITALS: BP 124/68
[2016-12-31 21:06] VITALS: BP 132/78
[2017-01-01 00:05] VITALS: BP 138/62
[2017-01-01 01:23] LABS: CHLORIDE 93 mEq/L (99-109); POTASSIUM 3.3 mEq/L (3.7-5.4); SODIUM 132 mEq/L (136-147)
[2017-01-01 01:25] LABS: GLUCOSE 100 mg/dL (70-99)
[2017-01-01 01:26] LABS: ANION GAP 9 MEQ/L (2-14)
[2017-01-01 01:29] LABS: GFR ESTIMATE (CALCULATED) > 59 mL/min/
[2017-01-01 01:30] LABS: UREA NITROGEN (BUN) 17 mg/dL (9-23)
[2017-01-01 04:00] VITALS: BP 137/88
[2017-01-01 06:15] LABS: ANION GAP 9 MEQ/L (2-14); CHLORIDE 91 MEQ/L (99-109); GFR ESTIMATE (CALCULATED) > 59 mL/min/; GLUCOSE 105 mg/dL (70-99); POTASSIUM 3.5 MEQ/L (3.7-5.4); SAMPLE HEMOLYSIS CHECK 0; SAMPLE ICTERIC CHECK 0; SAMPLE LIPEMIA CHECK 0; SODIUM 130 MEQ/L (136-147); UREA NITROGEN (BUN) 14 mg/dL (9-23)
[2017-01-01 06:34] LABS: MAGNESIUM 1.4 mg/dl (1.3-2.7)
[2017-01-01 08:40] VITALS: BP 107/65
[2017-01-01 15:20] VITALS: BP 114/69
[2017-01-01 23:42] VITALS: BP 127/68
[2017-01-02 01:08] LABS: CHLORIDE 91 mEq/L (99-109); SODIUM 128 mEq/L (136-147)
[2017-01-02 01:10] LABS: GLUCOSE 103 mg/dL (70-99)
[2017-01-02 01:11] LABS: ANION GAP 14 MEQ/L (2-14)
[2017-01-02 01:14] LABS: GFR ESTIMATE (CALCULATED) > 59 mL/min/
[2017-01-02 01:15] LABS: UREA NITROGEN (BUN) 17 mg/dL (9-23)
[2017-01-02 02:01] LABS: POTASSIUM 3.6 mEq/L (3.7-5.4)
[2017-01-02 05:23] LABS: HEMATOCRIT 25.8 % (38.0-50.0); MCH 31.4 PG (29.0-34.0); MCHC 34.5 G/DL (30.0-36.0); MCV 91.2 FL (86-99); MEAN PLAT.VOLUME 11.5 uM^3 (9.0-12.4); PLATELET COUNT 128 K/uL (156-360); RBC DIS.WIDTH-SD 45.9 % (39-53); RED BLOOD COUNT 2.83 M/uL (4.00-5.50); WHITE BLOOD COUNT 12.5 K/uL (4.1-10.2)
[2017-01-02 05:38] LABS: ANION GAP 8 MEQ/L (2-14); CHLORIDE 91 MEQ/L (99-109); GFR ESTIMATE (CALCULATED) > 59 mL/min/; GLUCOSE 89 mg/dL (70-99); POTASSIUM 3.2 MEQ/L (3.7-5.4); SAMPLE HEMOLYSIS CHECK 0; SAMPLE ICTERIC CHECK 0; SAMPLE LIPEMIA CHECK 0; SODIUM 131 MEQ/L (136-147); UREA NITROGEN (BUN) 15 mg/dL (9-23)
[2017-01-02 08:24] VITALS: BP 111/58
[2017-01-02 15:29] VITALS: BP 126/68
[2017-01-02 23:37] VITALS: BP 121/58
[2017-01-03 00:55] LABS: CHLORIDE 96 mEq/L (99-109); POTASSIUM 3.5 mEq/L (3.7-5.4); SODIUM 133 mEq/L (136-147)
[2017-01-03 00:57] LABS: GLUCOSE 100 mg/dL (70-99)
[2017-01-03 00:58] LABS: ANION GAP 9 MEQ/L (2-14)
[2017-01-03 01:00] LABS: GFR ESTIMATE (CALCULATED) > 59 mL/min/
[2017-01-03 01:01] LABS: UREA NITROGEN (BUN) 11 mg/dL (9-23)
[2017-01-03 05:27] LABS: HEMATOCRIT 30.1 % (38.0-50.0); MCH 31.9 PG (29.0-34.0); MCHC 33.9 G/DL (30.0-36.0); MCV 94.1 FL (86-99); MEAN PLAT.VOLUME 11.7 uM^3 (9.0-12.4); NRBC (%) 0.2 /100 WBC (0-0); PLATELET COUNT 148 K/uL (156-360); RBC DIS.WIDTH-CV 14.3 % (11.8-14.6); RBC DIS.WIDTH-SD 47.7 % (39-53); WHITE BLOOD COUNT 12.7 K/uL (4.1-10.2)
[2017-01-03 05:52] LABS: ANION GAP 9 MEQ/L (2-14); CHLORIDE 93 MEQ/L (99-109); GFR ESTIMATE (CALCULATED) > 59 mL/min/; GLUCOSE 85 mg/dL (70-99); MAGNESIUM 1.4 mg/dl (1.3-2.7); SAMPLE HEMOLYSIS CHECK 1; SAMPLE ICTERIC CHECK 0; SAMPLE LIPEMIA CHECK 0; SODIUM 132 MEQ/L (136-147); UREA NITROGEN (BUN) 11 mg/dL (9-23)
[2017-01-03 05:54] LABS: POTASSIUM 4.6 MEQ/L (3.7-5.4)
[2017-01-03 07:30] VITALS: BP 107/65
[2017-01-03 15:21] VITALS: BP 123/70
[2017-01-04 00:14] VITALS: BP 119/65
[2017-01-04 05:55] LABS: ANION GAP 12 MEQ/L (2-14); CHLORIDE 89 MEQ/L (99-109); GFR ESTIMATE (CALCULATED) > 59 mL/min/; GLUCOSE 74 mg/dL (70-99); MAGNESIUM 1.5 mg/dl (1.3-2.7); SAMPLE HEMOLYSIS CHECK 2; SAMPLE ICTERIC CHECK 0; SAMPLE LIPEMIA CHECK 0; SODIUM 133 MEQ/L (136-147); UREA NITROGEN (BUN) 14 mg/dL (9-23)
[2017-01-04 05:56] LABS: HEMATOCRIT 29.6 % (38.0-50.0); MCH 30.8 PG (29.0-34.0); MCHC 33.1 G/DL (30.0-36.0); MCV 93.1 FL (86-99); MEAN PLAT.VOLUME 11.6 uM^3 (9.0-12.4); NRBC (%) 0.3 /100 WBC (0-0); RBC DIS.WIDTH-CV 14.6 % (11.8-14.6); RBC DIS.WIDTH-SD 47.2 % (39-53); RED BLOOD COUNT 3.18 M/uL (4.00-5.50)
[2017-01-04 05:57] LABS: PLATELET COUNT 217 K/uL (156-360); WHITE BLOOD COUNT 16.7 K/uL (4.1-10.2)
[2017-01-04 05:58] LABS: POTASSIUM 3.9 MEQ/L (3.7-5.4)
[2017-01-04 07:20] VITALS: BP 112/61
[2017-01-04 07:35] LABS: ADD MIUA? NO; BILIRUBIN NEGATIVE; BLOOD NEGATIVE; COLOR STRAW ((YELLOW)); GLUCOSE (STRIP) NEGATIVE; KETONES NEGATIVE; LEUKOCYTES NEGATIVE; NITRITE NEGATIVE; PROTEIN (STRIP) NEGATIVE; SPECIFIC GRAVITY 1.004 (1.000-1.030); UROBILINOGEN 0.2 MG/DL (0.2-1.0)
[2017-01-04 08:42] LABS: UR CREATININE CONCENTRATION 24.5 MG/DL
[2017-01-04 15:30] VITALS: BP 108/57
[2017-01-04 23:38] VITALS: BP 119/62
[2017-01-05 00:49] LABS: POTASSIUM 3.5 mEq/L (3.7-5.4); SODIUM 132 mEq/L (136-147)
[2017-01-05 00:51] LABS: CHLORIDE 86 mEq/L (99-109); GLUCOSE 100 mg/dL (70-99)
[2017-01-05 00:53] LABS: ANION GAP 15 MEQ/L (2-14)
[2017-01-05 00:55] LABS: GFR ESTIMATE (CALCULATED) > 59 mL/min/
[2017-01-05 00:56] LABS: UREA NITROGEN (BUN) 20 mg/dL (9-23)
[2017-01-05 03:50] VITALS: BP 114/57
[2017-01-05 06:01] LABS: ANION GAP 10 MEQ/L (2-14); CHLORIDE 85 MEQ/L (99-109); GFR ESTIMATE (CALCULATED) > 59 mL/min/; GLUCOSE 86 mg/dL (70-99); MAGNESIUM 1.3 mg/dl (1.3-2.7); POTASSIUM 3.3 MEQ/L (3.7-5.4); SAMPLE HEMOLYSIS CHECK 0; SAMPLE ICTERIC CHECK 0; SAMPLE LIPEMIA CHECK 0; SODIUM 131 MEQ/L (136-147); UREA NITROGEN (BUN) 17 mg/dL (9-23)
[2017-01-05 06:42] LABS: HEMATOCRIT 22.8 % (38.0-50.0); MCH 31.7 PG (29.0-34.0); MCHC 33.8 G/DL (30.0-36.0); MCV 93.8 FL (86-99); MEAN PLAT.VOLUME 10.7 uM^3 (9.0-12.4); PLATELET COUNT 273 K/uL (156-360); RBC DIS.WIDTH-CV 15.6 % (11.8-14.6); RBC DIS.WIDTH-SD 46.4 % (39-53); WHITE BLOOD COUNT 14.1 K/uL (4.1-10.2)
[2017-01-05 06:52] LABS: RED BLOOD COUNT 2.43 M/uL (4.00-5.50)
[2017-01-05 07:13] LABS: ABS NEUTROPHIL COUNT 8.2; ANISOCYTOSIS 1+; EOSINOPHIL ABS CT 0.6; PLAT.SUFFICIENCY ADEQUATE
[2017-01-05 10:00] VITALS: BP 107/59
[2017-01-05 13:27] LABS: ANION GAP 8 MEQ/L (2-14); CHLORIDE 85 MEQ/L (99-109); GFR ESTIMATE (CALCULATED) > 59 mL/min/; GLUCOSE 111 mg/dL (70-99); POTASSIUM 3.6 MEQ/L (3.7-5.4); SAMPLE HEMOLYSIS CHECK 0; SAMPLE ICTERIC CHECK 0; SAMPLE LIPEMIA CHECK 0; SODIUM 133 MEQ/L (136-147); UREA NITROGEN (BUN) 27 mg/dL (9-23)
[2017-01-05 18:39] LABS: ANION GAP 10 MEQ/L (2-14); CHLORIDE 86 MEQ/L (99-109); GFR ESTIMATE (CALCULATED) > 59 mL/min/; GLUCOSE 139 mg/dL (70-99); POTASSIUM 3.3 MEQ/L (3.7-5.4); SAMPLE HEMOLYSIS CHECK 0; SAMPLE ICTERIC CHECK 0; SAMPLE LIPEMIA CHECK 0; SODIUM 135 MEQ/L (136-147); UREA NITROGEN (BUN) 24 mg/dL (9-23)
[2017-01-05 19:51] VITALS: BP 112/53
[2017-01-05 23:29] VITALS: BP 127/60
[2017-01-06 05:37] LABS: MCH 31.3 PG (29.0-34.0); MCHC 32.5 G/DL (30.0-36.0); MCV 96.4 FL (86-99); MEAN PLAT.VOLUME 10.6 uM^3 (9.0-12.4); NRBC (%) 0.1 /100 WBC (0-0); PLATELET COUNT 340 K/uL (156-360); RBC DIS.WIDTH-CV 16.7 % (11.8-14.6); RBC DIS.WIDTH-SD 50.4 % (39-53); RED BLOOD COUNT 2.49 M/uL (4.00-5.50); WHITE BLOOD COUNT 15.5 K/uL (4.1-10.2)
[2017-01-06 06:25] LABS: ANION GAP ND MEQ/L (2-14); CHLORIDE 85 MEQ/L (99-109); GFR ESTIMATE (CALCULATED) > 59 mL/min/; MAGNESIUM 1.2 mg/dl (1.3-2.7); POTASSIUM 3.3 MEQ/L (3.7-5.4); SAMPLE HEMOLYSIS CHECK 0; SAMPLE ICTERIC CHECK 0; SAMPLE LIPEMIA CHECK 0; SODIUM 134 MEQ/L (136-147); UREA NITROGEN (BUN) 20 mg/dL (9-23)
[2017-01-06 06:40] LABS: CARBON DIOXIDE (BICARBONATE) > 40.0 MEQ/L (20-31); GLUCOSE 97 mg/dL (70-99)
[2017-01-06 06:48] LABS: ABS NEUTROPHIL COUNT 10.4; ANISOCYTOSIS 1+; BAND NEUTROPHILS 1.7 % (0-8.0); EOSINOPHIL ABS CT 0.3; EOSINOPHILS 1.7 % (0-5.0); INSTRUMENT ABS NEUTROPHIL CT 7.4 K/uL; LYMPHOCYTES 13.8 % (15.0-45.0); MACROCYTES 1+; METAMYELOCYTES 0.9 %; MYELOCYTES 0.9 %; PLAT.SUFFICIENCY ADEQUATE; POLYCHROMASIA 1+; SEG.NEUTROPHILS 65.5 % (46.0-76.0); TARGET CELLS 1+
[2017-01-06 09:00] VITALS: BP 110/55
[2017-01-06 17:06] VITALS: BP 100/57
[2017-01-06 23:42] VITALS: BP 105/57
[2017-01-07 04:56] LABS: HEMATOCRIT 27.6 % (38.0-50.0); MCH 31.4 PG (29.0-34.0); MCHC 32.2 G/DL (30.0-36.0); MCV 97.5 FL (86-99); MEAN PLAT.VOLUME 10.1 uM^3 (9.0-12.4); PLATELET COUNT 417 K/uL (156-360); RBC DIS.WIDTH-CV 17.3 % (11.8-14.6); RBC DIS.WIDTH-SD 55.6 % (39-53); RED BLOOD COUNT 2.83 M/uL (4.00-5.50); WHITE BLOOD COUNT 15.4 K/uL (4.1-10.2)
[2017-01-07 05:15] LABS: CHLORIDE 92 mEq/L (99-109); POTASSIUM 3.1 mEq/L (3.7-5.4); SODIUM 135 mEq/L (136-147)
[2017-01-07 05:16] LABS: MAGNESIUM 1.3 mg/dL (1.3-2.7)
[2017-01-07 05:19] LABS: ANION GAP 10 MEQ/L (2-14)
[2017-01-07 05:21] LABS: GFR ESTIMATE (CALCULATED) > 59 mL/min/
[2017-01-07 05:22] LABS: UREA NITROGEN (BUN) 21 mg/dL (9-23)
[2017-01-07 05:25] LABS: GLUCOSE 158 mg/dL (70-99)
[2017-01-07 07:15] VITALS: BP 110/55
[2017-01-07] MEDS ORDERED: Thiamine,Vitamin B1 PO (13:29)
[2017-01-07] MEDS ORDERED: PANTOPRAZOLE SO40 MG PO (13:29)
[2017-01-07] MEDS ORDERED: MAG-OXIDE400 MG PO (13:29)
[2017-01-07] MEDS ORDERED: KLOR-CON SPRIN10 MEQ PO (13:29)
[2017-01-07] MEDS ORDERED: CREON 61 CAPSULE PO (13:29)
[2017-01-07] MEDS ORDERED: SPIRONOLACTONE25 MG PO (13:29)
[2017-01-07] MEDS ORDERED: VITAMIN D22000 UNIT PO (13:29)
[2017-01-07] MEDS ORDERED: FLUCONAZOLE100 MG PO (13:29)
[2017-01-07 15:54] VITALS: BP 103/58
== END 2017-01-07 16:54 | disposition home or self-care (01) | DRG 439 ==
LOC: EME 16:39 → 3EAST 20:22 → 4WEST 20:22 → EDOF 20:22 → 4WEST 22:37 → 3EAST 12-23 15:50
PROVIDERS: Emergency Medicine; Hospitalist; Internal Medicine; Internal Medicine Critical Care Medicine; Internal Medicine Gastroenterology; Internal Medicine Hematology & Oncology; Internal Medicine Infectious Disease; Internal Medicine Nephrology; Internal Medicine Pulmonary Disease; Physician Assistant; Specialist; Surgery Surgical Critical Care
DX: K85.20 Alcohol induced acute pancreatitis without necrosis or infection (principal); E87.0 Hyperosmolality and hypernatremia; E87.2 Acidosis; R18.8 Other ascites; D69.6 Thrombocytopenia, unspecified; N17.9 Acute kidney failure, unspecified; D68.9 Coagulation defect, unspecified; B37.81 Candidal esophagitis; K85.30 Drug induced acute pancreatitis without necrosis or infection; F10.20 Alcohol dependence, uncomplicated; R60.0 Localized edema; E22.2 Syndrome of inappropriate secretion of antidiuretic hormone; D69.49 Other primary thrombocytopenia; G40.909 Epilepsy, unspecified, not intractable, without status epilepticus; R74.0 Nonspecific elevation of levels of transaminase and lactic acid dehydrogenase [LDH]; K76.0 Fatty (change of) liver, not elsewhere classified; I82.612 Acute embolism and thrombosis of superficial veins of left upper extremity; R00.0 Tachycardia, unspecified; K21.9 Gastro-esophageal reflux disease without esophagitis; E83.42 Hypomagnesemia; D72.829 Elevated white blood cell count, unspecified; F32.9 Major depressive disorder, single episode, unspecified; E87.6 Hypokalemia; F41.9 Anxiety disorder, unspecified; J44.9 Chronic obstructive pulmonary disease, unspecified; F17.210 Nicotine dependence, cigarettes, uncomplicated; R10.9 Unspecified abdominal pain; R19.7 Diarrhea, unspecified; R11.10 Vomiting, unspecified; K29.60 Other gastritis without bleeding; K64.8 Other hemorrhoids; D64.9 Anemia, unspecified; K76.89 Other specified diseases of liver; R05 Cough; E83.39 Other disorders of phosphorus metabolism; R50.9 Fever, unspecified; M25.441 Effusion, right hand; R39.11 Hesitancy of micturition; E72.20 Disorder of urea cycle metabolism, unspecified
CPT/HCPCS: 71010; 71020; 74176; 74177; 74183; 76705; 80048; 80048 91; 80053; 80069; 80074; 80076; 80164; 80306 90; 81003; 81256 90; 82040; 82140; 82248; 82272; 82306; 82330; 82436; 82550; 82570; 82607; 82728; 82746; 82977; 83540; 83605; 83615; 83690; 83735; 83930; 83935; 83970; 84100; 84132 91; 84133; 84156; 84300; 84439; 84443; 84466; 84478; 84484; 84540; 84550; 84999; 85014; 85018; 85025; 85027; 85045; 85049; 85384; 85610; 85611; 85730; 86850; 86900; 86901; 86920; 87040; 87177; 87329; 87493; 87506; 87641; 88305; 88342 TC; 93005; 93306; 93970; 93971; 94640; 94640 76; 94760; 97530 GO; 97530 GP; 99202; 99281; 99285; C9113; G0480; J0610; J0696; J0881; J1170; J1644; J1940; J2250; J2405; J2765; J3010; J3430; J3475; J3480; J7030; J7040; J7050; J7120; P9016; P9017; P9047; S0028

== ENCOUNTER 2017-06-21 19:46 | Inpatient (IN) | payer OTHER ==
[~2017-06-21] VITALS: Ht 185.4 cm; Wt 78.4 kg
[~2017-06-21 19:46] MED LIST changes: +CLONIDINE HCL0.1 MG PO; +CREON 61 CAPSULE PO; +DEMECLOCYCLINE300 MG PO; +DIPHENHIST25 M2 PO; +FLUCONAZOLE100 MG PO; +IBUPROFEN800 MG PO; +KEPPRA1000 MG PO; +KLOR-CON SPRIN10 MEQ PO; +MAG-OXIDE400 MG PO; +NASA MIST SALIN75 ML BOTH NARES; +OXAYDO5 MG PO; +OXYCODONE HCL10 MG PO; +PANTOPRAZOLE SO40 MG PO; +PRIMIDONE50 MG PO; +SODIUM CHLORIDE1 G1 PO; +SPIRONOLACTONE25 MG PO; +Thiamine,Vitamin B1 PO; +VIMPAT50 MG PO; +VITAMIN D22000 UNIT PO
[2017-06-21 20:26] LABS: HEMATOCRIT 41.5 % (38.0-50.0); MCH 32.5 PG (29.0-34.0); MCHC 34.9 G/DL (30.0-36.0); MEAN PLAT.VOLUME 9.4 uM^3 (9.0-12.4); PLATELET COUNT 244 K/uL (156-360); RBC DIS.WIDTH-CV 13.6 % (11.8-14.6); RBC DIS.WIDTH-SD 46.5 % (39-53); RED BLOOD COUNT 4.46 M/uL (4.00-5.50); WHITE BLOOD COUNT 14.5 K/uL (4.1-10.2)
[2017-06-21 20:35] LABS: CHLORIDE 97 mEq/L (99-109); SODIUM 134 mEq/L (136-147)
[2017-06-21 20:37] LABS: GLUCOSE 98 mg/dL (70-99)
[2017-06-21 20:38] LABS: ANION GAP 14 MEQ/L (2-14)
[2017-06-21 20:39] LABS: TOTAL BILIRUBIN 0.9 mg/dL (0.0-1.0)
[2017-06-21 20:40] LABS: ALKALINE PHOSPHATASE 133 IU/L (3-129)
[2017-06-21 20:41] LABS: GFR ESTIMATE (CALCULATED) > 59 mL/min/
[2017-06-21 20:42] LABS: UREA NITROGEN (BUN) 6 mg/dL (9-23)
[2017-06-21 22:07] LABS: LIPASE 1907 U/L (1.0-51.0)
[2017-06-21] MEDS ORDERED: VITAMIN D32000 UNI1 PO (23:55)
[2017-06-21] MEDS ORDERED: PROTONIX40 MG PO (23:57)
[2017-06-21] MEDS ORDERED: KLOR-CON M2020 MEQ PO (23:58)
[2017-06-21] MEDS ORDERED: VITAMIN B-1100 MG PO (23:59)
[2017-06-21] MEDS ORDERED: CATAPRES0.1 MG PO (23:59)
[2017-06-22] MEDS ORDERED: REMERON15 M2 PO
[2017-06-22 02:18] LABS: SERUM ETHYL ALCOHOL < 10 mg/dL
[2017-06-22 04:52] VITALS: BP 170/106
[2017-06-22 05:31] LABS: ADD MIUA? NO; BILIRUBIN NEGATIVE; BLOOD NEGATIVE; COLOR YELLOW ((YELLOW)); GLUCOSE (STRIP) NEGATIVE; KETONES 20; LEUKOCYTES NEGATIVE; NITRITE NEGATIVE; PROTEIN (STRIP) NEGATIVE; SPECIFIC GRAVITY 1.043 (1.000-1.030); UCUL ADDED? NO; UROBILINOGEN 0.2 MG/DL (0.2-1.0)
[2017-06-22 05:49] LABS: AMPHETAMINES QUANT VALUE 0 NG/ML; BARBITUATES QUANT VALUE 0 NG/ML; BENZODIAZEPINES, URINE SCREEN POSITIVE (200 ng/mL); PHENCYCLIDINE QUANT VALUE 0 NG/ML
[2017-06-22 07:55] VITALS: BP 138/77
[2017-06-22 08:58] LABS: HEMATOCRIT 40.4 % (38.0-50.0); MCH 33.1 PG (29.0-34.0); MCHC 34.4 G/DL (30.0-36.0); MCV 96.2 FL (86-99); MEAN PLAT.VOLUME 9.8 uM^3 (9.0-12.4); PLATELET COUNT 234 K/uL (156-360); RBC DIS.WIDTH-CV 13.9 % (11.8-14.6); WHITE BLOOD COUNT 13.9 K/uL (4.1-10.2)
[2017-06-22 09:26] LABS: ALKALINE PHOSPHATASE 114 IU/L (3-129); ANION GAP 10 MEQ/L (2-14); CHLORIDE 100 MEQ/L (99-109); DIRECT BILIRUBIN 0.2 mg/dL (0.0-0.3); GFR ESTIMATE (CALCULATED) > 59 mL/min/; GLUCOSE 92 mg/dL (70-99); HDL CHOLESTEROL 85 MG/DL (Desirable>=40); LDL CHOLESTEROL 62 mg/dL (Desirable<100); NON-HDL CHOLESTEROL 74 mg/dL (Desirable<160); POTASSIUM 4.1 MEQ/L (3.7-5.4); SAMPLE HEMOLYSIS CHECK 0; SAMPLE ICTERIC CHECK 0; SAMPLE LIPEMIA CHECK 0; SODIUM 136 MEQ/L (136-147); TOTAL BILIRUBIN 0.9 MG/DL (0.0-1.0); TOTAL CHOLESTEROL 159 mg/dL (Desirable<200); TRIGLYCERIDES 60 MG/DL (Normal: <150); UREA NITROGEN (BUN) 8 mg/dL (9-23)
[2017-06-22 11:20] LABS: LIPASE 1528 U/L (1.0-51.0)
[2017-06-22 12:17] VITALS: BP 161/92
[2017-06-22 23:31] VITALS: BP 138/75
[2017-06-23 07:02] LABS: HEMATOCRIT 37.6 % (38.0-50.0); MCHC 33.2 G/DL (30.0-36.0); MCV 96.2 FL (86-99); MEAN PLAT.VOLUME 9.9 uM^3 (9.0-12.4); PLATELET COUNT 200 K/uL (156-360); RBC DIS.WIDTH-CV 13.5 % (11.8-14.6); RBC DIS.WIDTH-SD 48.1 % (39-53); RED BLOOD COUNT 3.91 M/uL (4.00-5.50); WHITE BLOOD COUNT 8.6 K/uL (4.1-10.2)
[2017-06-23 07:27] LABS: ANION GAP 8 MEQ/L (2-14); CHLORIDE 101 MEQ/L (99-109); GFR ESTIMATE (CALCULATED) > 59 mL/min/; GLUCOSE 101 mg/dL (70-99); POTASSIUM 3.9 MEQ/L (3.7-5.4); SAMPLE HEMOLYSIS CHECK 0; SAMPLE ICTERIC CHECK 0; SAMPLE LIPEMIA CHECK 0; SODIUM 137 MEQ/L (136-147); UREA NITROGEN (BUN) 6 mg/dL (9-23)
[2017-06-23 07:44] VITALS: BP 142/86
[2017-06-23] MEDS ORDERED: NICOTINE PATCH1 EAC2 TD (11:11)
[2017-06-23 13:41] LABS: LIPASE 525 U/L (1.0-51.0)
== END 2017-06-23 12:14 | disposition home or self-care (01) | DRG 439 ==
LOC: EME 19:46 → EDOF 06-22 02:43 → ENRESERV 06-22 02:44 → 3EAST 06-22 04:44
PROVIDERS: Hospitalist; Physician Assistant
DX: K85.20 Alcohol induced acute pancreatitis without necrosis or infection (principal); E22.2 Syndrome of inappropriate secretion of antidiuretic hormone; K85.30 Drug induced acute pancreatitis without necrosis or infection; F17.210 Nicotine dependence, cigarettes, uncomplicated; G40.909 Epilepsy, unspecified, not intractable, without status epilepticus; J43.9 Emphysema, unspecified; K21.9 Gastro-esophageal reflux disease without esophagitis; K76.0 Fatty (change of) liver, not elsewhere classified; F10.10 Alcohol abuse, uncomplicated; Y90.0 Blood alcohol level of less than 20 mg/100 ml
CPT/HCPCS: 74177; 80048; 80053; 80061; 80076; 80306 90; 81003; 83690; 85027; 94640; 94640 76; 94760; 99202; 99281; 99285; G0480; J1650; J2270; J2405; J3010; J7030; J7040

== ENCOUNTER 2017-11-13 09:22 | Emergency (ER) | payer OTHER ==
[~2017-11-13] VITALS: Ht 185.4 cm; Wt 85.1 kg
[~2017-11-13 09:22] MED LIST changes: +CATAPRES0.1 MG PO; +KLOR-CON M2020 MEQ PO; +NICOTINE PATCH1 EAC2 TD; +PROTONIX40 MG PO; +REMERON15 M2 PO; +VITAMIN D32000 UNI1 PO
[2017-11-13 09:32] VITALS: BP 131/70
== END 2017-11-13 10:41 | disposition home or self-care (01) ==
LOC: EME 09:22
PROC: 08C8XZZ Extirpation of Matter from Right Cornea, External Approach (ICD-10-PCS; principal; 2017-11-13)
DX: T15.01XA Foreign body in cornea, right eye, initial encounter (principal); W22.8XXA Striking against or struck by other objects, initial encounter; F41.9 Anxiety disorder, unspecified; G40.909 Epilepsy, unspecified, not intractable, without status epilepticus; F17.200 Nicotine dependence, unspecified, uncomplicated
CPT/HCPCS: 99281; 99284